=== PATIENT | male | born 2000 | race Two or more races ===

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

== ENCOUNTER → 2023-04-22 | Outpatient (REF) | payer OTHER ==
[~2023-04-22] MED LIST: METH20TA29; METH40CA4
== END ==
LOC: M LAB REF 16:21
PROVIDERS: ATTEND Physician Assistant
DX: J02.9 Acute pharyngitis, unspecified (principal)